=== PATIENT | male | born 1960 | race Caucasian/White ===

== ENCOUNTER 2017-01-29 11:42 | Emergency (ER) | payer BC ==
[~2017-01-29] VITALS: Ht 167.6 cm; Wt 79.6 kg
[2017-01-29 12:52] LABS: HEMATOCRIT 47.8 % (38.0-50.0); MCH 29.8 PG (29.0-34.0); MCHC 34.3 G/DL (30.0-36.0); MCV 86.8 FL (86-99); MEAN PLAT.VOLUME 11.3 uM^3 (9.0-12.4); PLATELET COUNT 135 K/uL (156-360); RBC DIS.WIDTH-CV 12.1 % (11.8-14.6); RBC DIS.WIDTH-SD 38.5 % (39-53); RED BLOOD COUNT 5.51 M/uL (4.00-5.50)
[2017-01-29 13:10] LABS: CHLORIDE 101 mEq/L (99-109); POTASSIUM 4.6 mEq/L (3.7-5.4); SODIUM 137 mEq/L (136-147)
[2017-01-29 13:12] LABS: GLUCOSE 100 mg/dL (70-99)
[2017-01-29 13:13] LABS: ANION GAP 10 MEQ/L (2-14)
[2017-01-29 13:15] LABS: TROP-I INTERPRETATION NEGATIVE; TROPONIN-I < 0.01 ng/mL (0.0-0.30)
[2017-01-29 13:17] LABS: GFR ESTIMATE (CALCULATED) > 59 mL/min/; UREA NITROGEN (BUN) 8 mg/dL (9-23)
[2017-01-29 15:13] VITALS: BP 128/90
== END 2017-01-29 15:19 | disposition left against medical advice (07) ==
LOC: EME 11:42
DX: R07.9 Chest pain, unspecified (principal); R00.2 Palpitations; I25.2 Old myocardial infarction
CPT/HCPCS: 71020; 80048; 84484; 85027; 93005; 99281; 99283